=== PATIENT | male | born 1955 | race Two or more races ===

== ENCOUNTER 2017-01-06 10:20 | Outpatient (CLI) | payer MEDICARE | END 2017-01-06 23:59 | LOC: WOU 10:20 | PROVIDERS: ATTEND Podiatrist Foot & Ankle Surgery | DX: M86.171 Other acute osteomyelitis, right ankle and foot (principal); S92.511S Displaced fracture of proximal phalanx of right lesser toe(s), sequela; W19.XXXS Unspecified fall, sequela; Z95.1 Presence of aortocoronary bypass graft; E11.22 Type 2 diabetes mellitus with diabetic chronic kidney disease; I12.9 Hypertensive chronic kidney disease with stage 1 through stage 4 chronic kidney disease, or unspecified chronic kidney disease; N18.9 Chronic kidney disease, unspecified; Z79.4 Long term (current) use of insulin; Z72.0 Tobacco use; E78.5 Hyperlipidemia, unspecified; I25.2 Old myocardial infarction; I25.10 Atherosclerotic heart disease of native coronary artery without angina pectoris; J44.9 Chronic obstructive pulmonary disease, unspecified; R60.0 Localized edema; Z79.82 Long term (current) use of aspirin; Z79.51 Long term (current) use of inhaled steroids | CPT/HCPCS: A6402; G0463 ==

== ENCOUNTER 2017-01-19 10:50 | Outpatient (CLI) | payer MEDICARE | END 2017-01-19 23:59 | disposition home health service (06) | LOC: WOU 10:50 | PROVIDERS: ATTEND Podiatrist Foot & Ankle Surgery | DX: S92.501D Displaced unspecified fracture of right lesser toe(s), subsequent encounter for fracture with routine healing (principal); X58.XXXD Exposure to other specified factors, subsequent encounter; R60.0 Localized edema | CPT/HCPCS: A6402; G0463 ==

== ENCOUNTER 2017-01-27 08:00 | Outpatient (CLI) | payer MEDICARE | END 2017-01-27 23:59 | disposition home health service (06) | LOC: WOU 08:00 | PROVIDERS: ATTEND Podiatrist Foot & Ankle Surgery | DX: Z47.89 Encounter for other orthopedic aftercare (principal); T84.84XA Pain due to internal orthopedic prosthetic devices, implants and grafts, initial encounter; R60.0 Localized edema; S92.501D Displaced unspecified fracture of right lesser toe(s), subsequent encounter for fracture with routine healing; X58.XXXD Exposure to other specified factors, subsequent encounter | CPT/HCPCS: 20670; A6402; J3490 ==

== ENCOUNTER 2017-02-10 09:10 | Outpatient (CLI) | payer MEDICARE, MEDICAID | END 2017-02-10 23:59 | disposition home or self-care (01) | LOC: WOU 09:10 | PROVIDERS: ATTEND Podiatrist Foot & Ankle Surgery | DX: S92.501D Displaced unspecified fracture of right lesser toe(s), subsequent encounter for fracture with routine healing (principal); X58.XXXD Exposure to other specified factors, subsequent encounter; B35.1 Tinea unguium | CPT/HCPCS: G0463 ==

== ENCOUNTER 2017-04-07 10:15 | Outpatient (CLI) | payer MEDICARE, MEDICAID | END 2017-04-07 23:59 | disposition home or self-care (01) | LOC: WOU 10:15 | PROVIDERS: ATTEND Podiatrist Foot & Ankle Surgery | DX: B35.3 Tinea pedis (principal); B35.1 Tinea unguium; E11.42 Type 2 diabetes mellitus with diabetic polyneuropathy; Z79.4 Long term (current) use of insulin | CPT/HCPCS: 87102; G0463 ==

== ENCOUNTER 2018-03-19 00:41 | Inpatient (IN) | payer MEDICARE, OTHER ==
[~2018-03-19] VITALS: Ht 172.7 cm; Wt 97.5 kg
--- NOTE | 2018-03-19 00:44 | NUR ---
NATALEE KIM SMART TEAM, PT C/O SUICIDAL IDEATION. PT ON 5150 HOLD. PT CALM AND COOPERATIVE. PT A/OX4. NO SIGNS OF DISTRESS NOTED. PT VITAL SIGNS STABLE. PT DENIES ANY MEDICAL COMPLAINT. SI PRECAUTIONS IMPLEMENTED. WILL CONT TO MONITOR PT.
[2018-03-19 01:19] LABS: BASOPHILS % (AUTO) 0.7 % (0.0-2.0); HEMATOCRIT 54 % (39-51); HEMOGLOBIN 17.3 g/dL (13.5-17.5); LYMPHOCYTES # (AUTO) 1.8 /CMM (0.8-4.8); MEAN CORPUSCULAR HGB CONC 32 g/dl (31.0-36.0); MEAN CORPUSCULAR VOLUME 93 fL (80-96); MONOCYTES # (AUTO) 0.8 /CMM (0.1-1.30); MONOCYTES % (AUTO) 11.4 % (2.0-12.0); NEUTROPHILS # (AUTO) 4.2 /CMM (1.8-8.9); NEUTROPHILS % (AUTO) 58.9 % (43.0-81.0); PLATELET COUNT (AUTO) 171 /CMM (150-450); RED BLOOD CELL COUNT(AUTO) 5.78 MIL/uL (4.5-6.0); WHITE BLOOD COUNT (AUTO) 7.1 K/uL (4.3-11.0)
[2018-03-19 01:29] LABS: CREATININE 1.9 mg/dL (0.6-1.3); POTASSIUM 4.3 mmol/L (3.5-5.1)
[2018-03-19 01:36] LABS: BILIRUBIN,DIRECT 0.1 mg/dL (0.0-0.2); BILIRUBIN,TOTAL 0.3 mg/dL (0.2-1.0); TOTAL PROTEIN, SERUM 7.3 g/dL (6.4-8.2)
[2018-03-19 01:37] LABS: SALICYLATE 1.5 mg/dL (2.8-20.0)
[2018-03-19 01:45] LABS: ALBUMIN 3.4 g/dL (3.4-5.0)
[2018-03-19] MEDS ORDERED: IPRATROPIUM NEB FS 0.5 MG/2.5 ML AMPUL.NEB NEB ONE (02:00)
[2018-03-19] MEDS ORDERED: predniSONE 20 MG TABLET PO ONE (02:00)
[2018-03-19] MEDS ORDERED: ALBUTEROL FS 2.5 MG/0.5 ML VIAL.NEB NEB ONE (02:00)
[2018-03-19] MEDS ORDERED: ALBUTEROL FS 2.5 MG/3 ML VIAL.NEB ONE (02:05)
[2018-03-19] MEDS ORDERED: IPRATROPIUM NEB FS 0.5 MG/2.5 ML AMPUL.NEB ONE (02:05)
[2018-03-19 02:13] LABS: APPEARANCE,URINE CLEAR (CLEAR); BILIRUBIN,URINE NEGATIVE (NEGATIVE); BLOOD, URINE 1+ Ery/uL (NEGATIVE); COLOR,URINE YELLOW (YELLOW); KETONES,URINE TRACE (NEGATIVE); LEUKOCYTE ESTERASE ,URINE NEGATIVE (NEGATIVE); NITRITE, URINE NEGATIVE (NEGATIVE); PH,URINE 5.5 (5.0-8.0); PROTEIN,URINE 3+ mg/dl (NEGATIVE); UGLUCOSE NEGATIVE (NEGATIVE); UROBILINOGEN,URINE 0.2 EU/dL (0.2)
[2018-03-19 02:23] LABS: BACTERIA,URINE None seen /HPF (None Seen); HYALINE CASTS, URINE Few /LPF (None Seen); MUCUS,URINE Few /LPF (None Seen); RBC,URINE 0-2 /HPF (0-2); SQUAMOUS EPITHELIAL CELL,UR Rare /HPF (None Seen); WBC,URINE 0-2 /HPF (0-3)
[2018-03-19] MEDS ORDERED: predniSONE 20 MG TABLET ONE (03:08)
[2018-03-19] MEDS ORDERED: SITA100T PO (03:31)
[2018-03-19] MEDS ORDERED: ZOLP10TA6 PO (03:31)
[2018-03-19] MEDS ORDERED: ALPR0.5T8 PO (03:31)
[2018-03-19] MEDS ORDERED: TRAM50TA2 PO (03:32)
[2018-03-19] MEDS ORDERED: RIVA10TA PO (03:32)
[2018-03-19] MEDS ORDERED: DIAZ10TA4 PO (03:32)
--- NOTE | 2018-03-19 04:30 | NUR ---
PT TRANSFERED TO [facility] VIA WHEELCHAIR.
--- NOTE | 2018-03-19 05:00 | NUR ---
ADMITTED A 62 Y/O MALE FROM HOME, EVALUATED FROM ER, ON 5150 HOLD DTS, PER HOLD, PATIENT STATED THAT HE IS HAVING SUICIDAL THOUGHTS WITH PLAN TO OD ON XANAX. PATIENT UPSET BECAUSE MEDI-CARE CUT PART OF HIS PLAN WHICH PREVENTS HIM FROM TAKING THE MEDICATION HE NEEDS. HE ALSO STATED THAT HE WOULD KILL HIMSELF BUT DOESN'T KNOW HOW HE WOULD DO IT. PATIENT ADMITTING DX. DEPRESSION AND MEDICAL DX.HYPERTENSION, DM, ASTHMA, LUNG CA. UPON FACE TO FACE EVALUATION, PATIENT APPEARED ALERT AND ORIENTED X 3, CALM, AXIOUS, COOPERATIVE, VERBALIZED DEPRESSION WHILE TALKING ABOUT THE STORY OF HIS LIFE, BODY CHECK DONE, PICTURE DONE, NO SOB, NO ACUTE DISTRESS, BREATHING EVEN AND UNLABORED, NO S/S OF PAIN AND DISCOMFORT, PATIENT REFUSED TO SIGN PAPER WORKS, REFUSED TO INFORM FAMILY MEMBERS, BELONGINGS INSPECTED FOR CONTRABAND. OFFERED SNACK TO THE PATIENT AND PATIENT APPRECIATED. ALL NEEDS ATTENDED AND MET, WILL CONTINUE TO MONITOR [id number] FOR SAFETY
[2018-03-19] MEDS ORDERED: METH150T (05:53)
[2018-03-19] MEDS ORDERED: RIVA10TA (05:53)
[2018-03-19] MEDS ORDERED: ATOR80TA PO (05:53)
[2018-03-19] MEDS ORDERED: TAMS0.4C34 PO (05:53)
[2018-03-19] MEDS ORDERED: ESOM40CA52 PO (05:53)
[2018-03-19] MEDS ORDERED: ALBU18HF2 INH (05:53)
[2018-03-19] MEDS ORDERED: ACETAMINOPHEN 325 MG TABLET PO PRN (06:00)
[2018-03-19] MEDS ORDERED: MAGNESIUM HYDROXIDE 30 ML UDC PO PRN (06:00)
[2018-03-19] MEDS ORDERED: MAG HYDROX/AL HYDROX/SIMETH 30 ML UDC PO PRN (06:00)
[2018-03-19 06:19] VITALS: BP 117/82
[2018-03-19 08:00] VITALS: BP 127/73
[2018-03-19] MEDS: NICOTINE PATCH (21MG) 21 MG PATCH.TD24 TD SCH (08:31)
[2018-03-19] MEDS: TAMSULOSIN 0.4 MG CAP.SR.24H PO SCH ×2 (12:30→13:03)
[2018-03-19] MEDS: LORAZEPAM 0.5 MG TABLET PO PRN (13:19)
--- NOTE | 2018-03-19 13:19 | NUR ---
GPS/RN-NOTES PATIENT REFUSED FLOMAX MEDICATION. STATED" NO I DON'T NEED FLOMAX, INSTEAD GIVE ANYTHING FOR ANXIETY" ATIVAN 0.5MG P.O GIVEN PRN ORDER. WILL CONT. MONITORING FOR SAFETY AND BEHAVIOR.
[2018-03-19] MEDS ORDERED: ALBUTEROL FS 2.5 MG/3 ML VIAL.NEB NEB PRN (13:30)
--- NOTE | 2018-03-19 14:30 | NUR ---
GPS/RN-NOTES PATIENT SLEEPING IN BED ,NO ACUTE DISTRESS NOTED.
[2018-03-19 16:00] VITALS: BP 143/87
[2018-03-19] MEDS: RIVAROXABAN 10 MG TABLET PO SCH (16:30)
--- NOTE | 2018-03-19 19:57 | NUR ---
GPS/RN OPENING NOTES RECEIVED PATIENT AWAKE, ABLE TO VERBALIZE NEEDS, IN THE ACTIVITY ROOM, MONITORING FOR ANY CHANGES IN BEHAVIOR.
[2018-03-19 20:00] VITALS: BP 146/98
--- NOTE | 2018-03-19 20:33 | NUR ---
GPS/RN NOTES PATIENT REQUESTING FOR SLEEP MEDICATION. REPORTED UNABLE TO SLEEP. DISCUSSED MEDICATION INTERACTION WHEN TAKEN WITH OTHER MEDICATION , TO AVOID ANY COMPLICATION. WILL MONITOR.
[2018-03-19] MEDS ORDERED: KEY,NONCONTROL,TO KEEP IN PYXI 1 EA MC ONE (21:05)
[2018-03-19] MEDS: TEMAZEPAM 7.5 MG CAPSULE PO PRN (21:19)
[2018-03-19] MEDS ORDERED: DIAZEPAM 10 MG TABLET ONE (21:47)
[2018-03-19] MEDS ORDERED: DIAZEPAM 10 MG TABLET PO SCH (22:00)
[2018-03-20] MEDS: LORAZEPAM 0.5 MG TABLET PO PRN ×2 (00:36→09:41)
--- NOTE | 2018-03-20 00:39 | NUR ---
gps/rn notes requested ativan prn as patient inability to relax.
--- NOTE | 2018-03-20 00:43 | NUR ---
gps/rn notes snacks provided to patient request
[2018-03-20 08:00] VITALS: BP 103/50
[2018-03-20 08:15] LABS: BASOPHILS % (AUTO) 0.3 % (0.0-2.0); EOSINOPHILS % (AUTO) 1.7 % (0.0-6.0); HEMATOCRIT 52 % (39-51); MEAN CORPUSCULAR HGB CONC 33 g/dl (31.0-36.0); MEAN CORPUSCULAR VOLUME 94 fL (80-96); MONOCYTES # (AUTO) 0.7 /CMM (0.1-1.30); MONOCYTES % (AUTO) 9.8 % (2.0-12.0); NEUTROPHILS # (AUTO) 4.7 /CMM (1.8-8.9); NEUTROPHILS % (AUTO) 62.2 % (43.0-81.0); PLATELET COUNT (AUTO) 163 /CMM (150-450); RED BLOOD CELL COUNT(AUTO) 5.59 MIL/uL (4.5-6.0); WHITE BLOOD COUNT (AUTO) 7.6 K/uL (4.3-11.0)
[2018-03-20 08:29] LABS: ALBUMIN 3.4 g/dL (3.4-5.0); BILIRUBIN,TOTAL 0.5 mg/dL (0.2-1.0); CALCIUM, SERUM 8.9 mg/dL (8.5-10.1); CREATININE 1.4 mg/dL (0.6-1.3); POTASSIUM 4.1 mmol/L (3.5-5.1)
[2018-03-20 08:32] LABS: CHOLESTEROL 177 mg/dL (<200); HDL CHOLESTEROL 74 mg/dL (40-60); LDL 97 mg/dL (0-99); TRIGLYCERIDES 87 mg/dL (30-150)
[2018-03-20] MEDS: NICOTINE PATCH (21MG) 21 MG PATCH.TD24 TD SCH (09:40)
[2018-03-20] MEDS: ESCITALOPRAM OXALATE (10 MG) 10 MG TABLET PO SCH (09:41)
[2018-03-20] MEDS: LINAGLIPTIN 5 MG TABLET PO SCH (09:41)
[2018-03-20] MEDS: PANTOPRAZOLE 40 MG/PACK PACK NG SCH (09:41)
[2018-03-20] MEDS: TAMSULOSIN 0.4 MG CAP.SR.24H PO SCH (09:41)
[2018-03-20] MEDS: ATORVASTATIN 40 MG TABLET PO SCH (09:41)
[2018-03-20] MEDS: RIVAROXABAN 10 MG TABLET PO SCH (09:42)
[2018-03-20 16:00] VITALS: BP_SYST 154; BP_SYST 160; BP_DIAS 80; BP_DIAS 90
--- NOTE | 2018-03-20 17:29 | NUR ---
GPS RN NOTES-- PT'S NEED MET AND ANTICIPATED. PT HAS BEEN MED COMPLIANT AND COOPERATIVE WITH TREATMENT PLAN. PT IS NOT IN ANY APPARENT DISTRESS. PT IS AMBULATORY AND ABLE TO MAKE NEEDS KNOWN. REMINDED PT TO USE CALL RAMIRES WHEN ASSISTANCE IS NEEDED.
[2018-03-20 20:16] VITALS: BP 147/90
[2018-03-20] MEDS: DIAZEPAM 5 MG TABLET PO SCH (21:08)
[2018-03-20] MEDS: TEMAZEPAM 7.5 MG CAPSULE PO PRN (22:31)
[2018-03-21] MEDS: LORAZEPAM 0.5 MG TABLET PO PRN (00:30)
[2018-03-21 07:10] LABS: CALCIUM, SERUM 8.9 mg/dL (8.5-10.1); CREATININE 1.5 mg/dL (0.6-1.3); POTASSIUM 4.1 mmol/L (3.5-5.1)
[2018-03-21 08:00] VITALS: BP 166/100
[2018-03-21] MEDS: TAMSULOSIN 0.4 MG CAP.SR.24H PO SCH (09:14)
[2018-03-21] MEDS: RIVAROXABAN 10 MG TABLET PO SCH (09:15)
[2018-03-21] MEDS: ATORVASTATIN 40 MG TABLET PO SCH (09:15)
[2018-03-21] MEDS: ESCITALOPRAM OXALATE (10 MG) 10 MG TABLET PO SCH (09:15)
[2018-03-21] MEDS: NICOTINE PATCH (21MG) 21 MG PATCH.TD24 TD SCH (09:15)
[2018-03-21] MEDS: PANTOPRAZOLE 40 MG/PACK PACK NG SCH (09:15)
[2018-03-21] MEDS: LINAGLIPTIN 5 MG TABLET PO SCH (09:15)
--- NOTE | 2018-03-21 12:38 | NUR ---
SW called the pt's daughter, Viki ([phone]), and left a message on her voicemail stating that the SW would like to discuss the pt and his treatment/discharge plan.
--- NOTE | 2018-03-21 13:47 | NUR ---
Viki ([phone]), pt's daughter, called the SW back and stated that she would like to know when he is being discharged and she stated that she would be the one to pick him up when that time comes. She also stated that she believes the pt would benefit from a Farsi speaking psychiatrist and so the SW provided with with three that she is familiar with around the pt's home area. Pt's daughter stated that she would call and work on making an appointment for the pt. The psychiatrists that the SW provided her with are listed below: -Dr. Ronnie Darnell [facility] [address], [address], [place] [address] - Dr. Jo Martinez [facility] [place], [place] [address] - Dr. Lashonda Wolfe [address], [address] [place], [place] [address]
[2018-03-21 16:00] VITALS: BP 149/89
--- NOTE | 2018-03-21 16:22 | NUR ---
Initial Discharge Plan: Pt currently lives alone in his home located at [address] [place] [address]; ([phone]). Per pt, he would like to return home. Per the pt's daughter, Viki ([phone]), stated that she will be assisting in finding a provider for the pt. SW will work with the pt and the MD regarding appropriate discharge planning. SW will form a safe and proper discharge.
[2018-03-21 20:00] VITALS: BP_SYST 150; BP_SYST 166; BP_DIAS 102; BP_DIAS 88
[2018-03-21] MEDS: DIAZEPAM 5 MG TABLET PO SCH (22:17)
[2018-03-21] MEDS: TEMAZEPAM 7.5 MG CAPSULE PO PRN (23:55)
[2018-03-22] MEDS: LORAZEPAM 0.5 MG TABLET PO PRN ×2 (02:43→09:56)
[2018-03-22 07:24] LABS: CALCIUM, SERUM 8.9 mg/dL (8.5-10.1); CREATININE 1.3 mg/dL (0.6-1.3); POTASSIUM 3.9 mmol/L (3.5-5.1)
[2018-03-22 08:00] VITALS: BP 150/99
[2018-03-22] MEDS: TAMSULOSIN 0.4 MG CAP.SR.24H PO SCH (08:39)
[2018-03-22] MEDS: ATORVASTATIN 40 MG TABLET PO SCH (08:40)
[2018-03-22] MEDS: ESCITALOPRAM OXALATE (10 MG) 10 MG TABLET PO SCH (08:40)
[2018-03-22] MEDS: PANTOPRAZOLE 40 MG/PACK PACK NG SCH (08:40)
[2018-03-22] MEDS: NICOTINE PATCH (21MG) 21 MG PATCH.TD24 TD SCH (08:40)
[2018-03-22] MEDS: LINAGLIPTIN 5 MG TABLET PO SCH (08:40)
[2018-03-22] MEDS: RIVAROXABAN 10 MG TABLET PO SCH (08:44)
[2018-03-22] MEDS: AMLODIPINE BESYLATE 2.5 MG TABLET PO SCH (13:01)
[2018-03-22 16:00] VITALS: BP 152/97
--- NOTE | 2018-03-22 16:17 | NUR ---
Viki ([phone]), pt's daughter, called the SW and asked about any updates regarding the pt's case. SW apologized for not calling her with an update and stated that the pt's psychiatrist is recommending that the pt be involved with a program called [facility]. SW stated that she sent a referral and that the program accepts Medicare and can make accommodations with transportation. Pt's daughter stated that she accepts this discharge plan.
--- NOTE | 2018-03-22 16:26 | NUR ---
WILLI faxed a referral to [facility] with attention to Chhaya Farnkel to the fax number: [phone].
[2018-03-22 20:11] VITALS: BP 129/85
[2018-03-22] MEDS: DIAZEPAM 5 MG TABLET PO SCH (21:17)
[2018-03-22] MEDS: TEMAZEPAM 7.5 MG CAPSULE PO PRN (23:03)
[2018-03-23] MEDS: LORAZEPAM 0.5 MG TABLET PO PRN (05:57)
[2018-03-23 08:00] VITALS: BP 140/99
[2018-03-23] MEDS: ATORVASTATIN 40 MG TABLET PO SCH (08:11)
[2018-03-23] MEDS: LINAGLIPTIN 5 MG TABLET PO SCH (08:11)
[2018-03-23] MEDS: NICOTINE PATCH (21MG) 21 MG PATCH.TD24 TD SCH (08:11)
[2018-03-23] MEDS: PANTOPRAZOLE 40 MG/PACK PACK NG SCH (08:11)
[2018-03-23] MEDS: ESCITALOPRAM OXALATE (10 MG) 10 MG TABLET PO SCH (08:11)
[2018-03-23] MEDS: TAMSULOSIN 0.4 MG CAP.SR.24H PO SCH (08:11)
[2018-03-23] MEDS: AMLODIPINE BESYLATE 2.5 MG TABLET PO SCH (08:11)
[2018-03-23] MEDS: RIVAROXABAN 10 MG TABLET PO SCH (08:15)
--- NOTE | 2018-03-23 13:39 | NUR ---
WILLI called [facility] ([phone]) and asked to speak to Chhaya, administrative analyst. WILLI was transferred to her voicemail where she left a message regarding the referral that she had sent for the pt yesterday.
--- NOTE | 2018-03-23 13:55 | NUR ---
WILLI called Viki ([phone]), pt's daughter, and left her a message on her voicemail stating that she would like to discuss the pt's discharge with her when she gets the chance.
--- NOTE | 2018-03-23 15:21 | NUR ---
Group note: Pt attended a group session on 03/16/18 at 11AM discussing the topic of post discharge goals. S: Pt stated, I want to clean up my life and go with the flow of everything. I mostly just want to spend time with my grandson and my family so that I can focus on the positives. O: Pt was present during the group session and was cooperative. Pt appeared to be in a euthymic mood and presented with a calm and cooperative affect. Pt appeared to be anxious when opening up about his loved ones and began to move around in his chair. A: Pt understood that he has been focusing on the negative aspects of his life for a long time and was not able to see that he has a beautiful family that needs him. He was able to realize that life is worth a lot more than what he had thought before being admitted. P: Pt will continue milieu treatment and medication stabilization. Addendum: 03/24/18 at 1540 by ASYA MÁRQUEZ Group note: Pt attended a group session on 03/23/18 at 11AM discussing the topic of post discharge goals.
--- NOTE | 2018-03-23 15:29 | NUR ---
Viki ([phone]), pt's daughter, called the SW back and stated that she would like the pt to be discharged to her house tomorrow and that she would like the SW to set the pt up with [facility] ride. SW stated that she will do her best to accommodate the pt's daughter's request. SW also provided her with details regarding the [facility] that the pt was accepted to.
--- NOTE | 2018-03-23 15:31 | NUR ---
Chhaya from [facility] ([phone]) called the SW and stated that the pt was accepted to the program and can start attending on 03/28/18. She stated that the pt can be picked up from his home and that he can attend the program three times a week. SW stated that she would provide this information to the pt and the pt's daughter.
--- NOTE | 2018-03-23 15:33 | NUR ---
WILLI called [facility] ([phone]) and provided the twisting press operator with the pt's information so that an application can be sent to his home. The twisting press operator then provided the SW with a [place] ID# [id number] for the pt to put on his application.
--- NOTE | 2018-03-23 15:34 | NUR ---
WILLI called Viki ([phone]), pt's daughter, and informed her that she started the process for the pt to apply for [facility] rides. She stated that an application will be sent to his home and that his [place] ID# is [id number].
[2018-03-23 16:00] VITALS: BP 138/89
[2018-03-23 20:01] VITALS: BP 146/91
[2018-03-23] MEDS: DIAZEPAM 5 MG TABLET PO SCH (21:12)
[2018-03-23] MEDS: TEMAZEPAM 7.5 MG CAPSULE PO PRN (22:49)
[2018-03-24] MEDS: LORAZEPAM 0.5 MG TABLET PO PRN (02:23)
[2018-03-24 08:00] VITALS: BP 143/94
[2018-03-24 08:33] VITALS: BP 148/84
[2018-03-24] MEDS: NICOTINE PATCH (21MG) 21 MG PATCH.TD24 TD SCH (08:33)
[2018-03-24] MEDS: TAMSULOSIN 0.4 MG CAP.SR.24H PO SCH (08:33)
[2018-03-24] MEDS: AMLODIPINE BESYLATE 2.5 MG TABLET PO SCH (08:33)
[2018-03-24] MEDS: ATORVASTATIN 40 MG TABLET PO SCH (08:33)
[2018-03-24] MEDS: RIVAROXABAN 10 MG TABLET PO SCH (08:34)
[2018-03-24] MEDS: LINAGLIPTIN 5 MG TABLET PO SCH (08:35)
[2018-03-24] MEDS: PANTOPRAZOLE 40 MG/PACK PACK NG SCH (08:35)
--- NOTE | 2018-03-24 08:52 | NUR ---
DR. ALEXANDER GAVE AN ORDER TO D/C HOLD AND D/C TO DAUGHTER'S HOUSE AND TO FOLLOW UP WITH PSYCH AND MEDICAL DOCTORS. Addendum: 03/24/18 at [address]13 [address] GOODMAN RN DR. ALEXANDER GAVE AN ORDER OF HOME HEALTH SERVICES BY [facility] AND [employer] BASIS ARCHITECT MADE AWARE.
[2018-03-24] MEDS ORDERED: ESCITALOPRAM OXALATE (10 MG) 10 MG TABLET PO SCH (09:00)
--- NOTE | 2018-03-24 09:44 | NUR ---
WILLI faxed a referral for the pt to [facility] to the fax number: [phone].
--- NOTE | 2018-03-24 10:08 | NUR ---
WILLI called Viki ([phone]), pt's daughter, and informed her on a message on her voicemail that the pt is about to discharge and everything has been set up for him such as home health, [facility], and his [facility]. WILLI informed her to call back if there is anything else that she would like.
--- NOTE | 2018-03-24 10:30 | NUR ---
GPS RN NOTE: PT DISCHARGE HOME VIA TAXI TO HIS DAUGHTERS HOME AT [id number] ,[place]. PATIENT IN STABLE CONDITION DENIES SI/HI , DENIES BEEN DEPRESSED ,VSS , NO S/S DISTRESS NOTED, A&OX4 , AMBULATORY SELF CARE, COMPLIANT WITH MEDICATIONS AND TX . EXIT CARE DONE PRINTED SIGN AND GIVEN TO PT, PRESCRIPTIONS EXPLAIN AND GIVEN TO PT. FOLLOW UP APPT EXPLAIN , GIVEN TO PT. ALL BELONGINGS AND VALUABLES RETURNED TO PT.PT REFUSED SKIN ASSESSMENT STATED ' MY SKIN IS GOOD"
--- NOTE | 2018-03-24 12:16 | NUR ---
Discharge Note: Pt was discharged to his daughters home located at [address] [address]; ([phone]). Pt was transported via taxi at 10AM. Pts daughter, Viki ([phone]), was made aware of this discharge. Pt was referred to [facility] as well as [facility]. Upon discharge, the pt appeared to be in a euthymic mood and presented with a calm and cooperative affect. Pt denied both suicidal and homicidal ideation as well as auditory and visual hallucinations. Pt was provided with smoking cessation referrals upon discharge that are listed below. Pt will be under the care of psychiatrist, Dr. Harry, [place] [address] [place] [address]; and harness tier, Dr. Parth Luna, [place] [address] [place] [address]; . Smoking cessation referrals: [facility] 800-LUNGUSA [facility] [phone]
== END 2018-03-24 10:00 | disposition home or self-care (01) | DRG 885 ==
LOC: ER 00:43 → GPS 03:12 → EDBD 03:12
PROVIDERS: ADMIT Psychiatry & Neurology Psychiatry; ATTEND Psychiatry & Neurology Psychiatry
DX: F33.2 Major depressive disorder, recurrent severe without psychotic features (principal); N17.9 Acute kidney failure, unspecified; R45.851 Suicidal ideations; C34.90 Malignant neoplasm of unspecified part of unspecified bronchus or lung; E11.9 Type 2 diabetes mellitus without complications; E86.0 Dehydration; I10 Essential (primary) hypertension; J45.909 Unspecified asthma, uncomplicated; J44.9 Chronic obstructive pulmonary disease, unspecified; N40.0 Benign prostatic hyperplasia without lower urinary tract symptoms; Z79.899 Other long term (current) drug therapy; Z79.84 Long term (current) use of oral hypoglycemic drugs; Z79.01 Long term (current) use of anticoagulants; F10.10 Alcohol abuse, uncomplicated; Y90.3 Blood alcohol level of 60-79 mg/100 ml; F17.200 Nicotine dependence, unspecified, uncomplicated; F41.9 Anxiety disorder, unspecified; Z90.2 Acquired absence of lung [part of]
CPT/HCPCS: 36415; 71045-TC; 80048-TC; 80053-TC; 80061-TC; 80076-TC; 80305; 81000-TC; 85025-TC; 87081-TC; A6402; G0480